=== PATIENT | female | born 1970 | race Caucasian/White ===

== ENCOUNTER 2022-05-14 22:56 | Emergency (ER) | payer SELFPAY | END 2022-05-15 01:23 | disposition home or self-care (01) | LOC: CSHERS 22:56 | DX: R22.43 Localized swelling, mass and lump, lower limb, bilateral (principal); Z86.718 Personal history of other venous thrombosis and embolism; Z87.891 Personal history of nicotine dependence; Z79.01 Long term (current) use of anticoagulants | CPT/HCPCS: 93925 ==

== ENCOUNTER 2024-05-14 11:49 | Outpatient (CLI) | payer OTHER | END 2024-05-14 11:50 | disposition home or self-care (01) | LOC: CSHULT 11:49 | PROVIDERS: ATTEND Nurse Practitioner Family | DX: E04.1 Nontoxic single thyroid nodule (principal) | CPT/HCPCS: 76536 ==